=== PATIENT | female | born 1995 | race African-American/Black ===

== ENCOUNTER 2020-01-22 10:15 | Emergency (ER) | payer OTHER ==
[~2020-01-22] VITALS: Ht 162.6 cm; Wt 59.1 kg
[2020-01-22 10:17] VITALS: BP 117/65
== END 2020-01-22 11:28 | disposition home or self-care (01) ==
LOC: EMS 10:22
DX: N76.0 Acute vaginitis (principal); B96.89 Other specified bacterial agents as the cause of diseases classified elsewhere